=== PATIENT | male | born 1975 | race Caucasian/White ===

== ENCOUNTER 2019-08-08 13:51 | Emergency (ER) | payer BC, SELFPAY ==
[2019-08-08 13:53] VITALS: BP 149/102; PULSE 89; RESP 16; TEMP 36.4; O2SAT 99; BMI 25.5
--- NOTE | 2019-08-08 14:42 | EKG12_ITS ---
Test Reason : CP Blood Pressure : / mmHG Vent. Rate : 085 BPM Atrial Rate : 085 BPM P-R Int : 162 ms QRS Dur : 084 ms QT Int : 370 ms P-R-T Axes : 064 059 038 degrees QTc Int : 440 ms Sinus rhythm with frequent and consecutive Premature ventricular complexes Abnormal ECG Confirmed by DINESH HARVEY, LORENZO ([id number]), supervising editor news reel DENNISE IVAN ([id number]) on 08/10/2019 12:56:43 PM Referred By: ALIYAH Confirmed By:LORENZO MONTIEL MD
[2019-08-08 14:48] LABS: Basophil# 0.04 X10^3/uL; Basophil% 0.5 % (0-1); Eosinophil# 0.11 X10^3/uL; Eosinophils% 1.3 % (0-5); Hematocrit 45.1 % (40-54); Hemoglobin 15.9 g/dL (13.0-16.5); Lymphocyte % 19.2 % (19-41); Mean Corp Hgb Conc 35.3 g/dL (32-36); Mean Corpuscular Hgb 31.2 pg (27.0-32.0); Mean Corpuscular Volume 88.4 fL (80-94); Mean Platelet Vol. 9.3 fl (6.2-12.0); Monocyte# 0.61 X10^3/uL; Monocyte% 7.3 % (0-10); NRBC Flagged by Analyzer 0 % (0-5); Neutrophil # 5.95 X10^3/uL (2.7-7.7); Neutrophil % 71.2 % (47-70); Platelet Count 249 K/mm3 (150-450); RBC Distribution Width CV 11.9 % (11.6-14.6); RBC Distribution Width SD 38.9 fl (35.1-43.9); White Blood Count 8.4 K/mm3 (4.4-11.0)
[2019-08-08 14:56] LABS: D-Dimer Quantitative (DVT/PE) < 0.27 FEU/ug/m (0.27-0.49)
[2019-08-08] MEDS: 0.9% Normal Saline 1,000 ML 150 ML IV (14:57)
[2019-08-08] MEDS: Aspirin 81 MG TAB.CHEW 324 MG PO (14:57)
--- NOTE | 2019-08-08 15:00 | RAD_ITS ---
STUDY: X-RAY CHEST REASON FOR EXAM: Male, 44 years old. Chest pain. TECHNIQUE: PA and lateral views of the chest. COMPARISON: None. FINDINGS: EKG electrodes are seen. The lungs are clear and expanded. Scattered calcified granulomas There is no demonstrated pleural abnormality. Normal size heart. Normal mediastinum and isrrael. Normal visualized pulmonary arteries. Normal visualized aortic arch and descending thoracic aorta. Normal visualized thoracic spine. Normal visualized ribs, clavicles, and shoulders. There is no demonstrated abnormality of the visualized soft tissue structures of the upper abdomen. RAD/Chest PA and Lateral IMPRESSION: Normal x-ray examination of the chest. Electronically Signed: Ayo Medina, at 15:15 EST , Service support ,
[2019-08-08 15:02] LABS: Anion Gap 5 (5-15); BUN 8 mg/dL (7-18); BUN/Creat Ratio 8.5 RATIO (10-20); Calcium,Total 9.5 mg/dL (8.5-10.1); Chloride 106 mmol/L (98-107); Creatinine, Serum 0.94 mg/dL (0.70-1.30); EST Glomerular Filtration Rate 92 mL/min (>60); Est Glom Filt Rate - Afr Amer 111 mL/min (>60); Glucose 97 mg/dL (74-106); Potassium 4.2 mmol/L (3.5-5.1); Sodium Level 140 mmol/L (136-145)
--- NOTE | 2019-08-08 15:37 | ED.DCSUM_ITS ---
History of Present Illness Chief Complaint: Chest Pain Detail of Chief Complaint: Right-sided chest pain Informant: Patient Onset: Days - 3 days Context: Sudden Onset Timing: Waxes and wanes Current Severity: Mild Maximum Severity: Moderate Narrative: Patient presents with right-sided chest pain for the past 3 days. He states 3 days ago he was in [place]. He had sudden onset of sharp right- sided chest pain. He is able to pinpoint one finger right to the area. He states the next day the pain was only about half as intense and the following day again half as intense. He does not remember feeling short of breath. He has not had recent cough. Last night he had sudden sharp pain to his left low back that caused him to fall. Patient states he thinks this is all chest wall pain but he was not able to reproduce with palpation over his chest. He does have a family history of heart disease. He has no risk factors for DVT or PE. Past Medical History - Allergies and Home Meds Allergies/Adverse Reactions: Allergies tree nut Allergy (Verified 08/08/19 13:52) Chest tightness walnut Allergy (Verified 08/08/19 13:52) Chest tightness Primary Care Physician: Lanette Gould MD [Primary Care Provider] - 5-7 Days Past Medical History: None Lives: With Family Smoking Status: Never smoker Review of Systems General: Denies: Chills, Fever Eyes: Denies: Visual changes - bilaterally ENT: Denies: Bilateral ear pain Cardiovascular: Reports: Chest pain. Denies: Palpitations, Heart racing Respiratory: Denies: Dyspnea, Cough Gastrointestinal: Denies: Abdominal pain, Nausea, Vomiting, Diarrhea Genitourinary: Denies: Dysuria Musculoskeletal: Reports: Back pain - Last evening, now resolved. Denies: Extremity Pain Skin: Denies: Rash Neurological: Denies: Headache, Weakness, Parasthesia Endocrine: Denies: Polyuria, Polydipsia Hematologic: Denies: Easy bruising Allergy: Denies: Uticaria Physical Exam Vital Signs/Narrative: Vital Signs Temp Pulse Resp BP Pulse Ox 08/08/19 13:53 97.5 F L 89 16 149/102 H 99 Inital Vital Signs reviewed: Yes General: Well nourished, Well developed Head: Normocephalic ENT: Moist mucous membranes Neck: Supple Cardiovascular: Regular rate, Regular rhythm Respiratory: No distress, CTA bilaterally, Chest nontender Abdomen: Soft, Nontender Extremities: Nontender Skin: Normal color, No rash Neurological: Alert, Oriented x3, Normal Strength, Normal Sensation Psychological: Normal affect Diagnostic/Tx/Re-eval Impressions Chest X-Ray 08/08/19 15:00 IMPRESSION: Normal x-ray examination of the chest. Electronically Signed: Ayo Medina, at 15:15 EST , Service support , 08/08/19 15:00 Chest PA and Lateral [RAD] Stat Laboratory Results 08/08/19 08/08/19 08/08/19 14:00 14:00 14:00 WBC 8.4 RBC 5.10 Hgb 15.9 Hct 45.1 MCV 88.4 MCH 31.2 MCHC 35.3 RDW Std Deviation 38.9 RDW Coeff of Renan 11.9 Plt Count 249 MPV 9.3 Immature Gran % (Auto) 0.500 Neut % (Auto) 71.2 H Lymph % (Auto) 19.2 Burnett % (Auto) 7.3 Eos % (Auto) 1.3 Baso % (Auto) 0.5 Absolute Neuts (auto) 6.0 Absolute Lymphs (auto) 1.60 Nucleated RBC % 0 D-Dimer Quant (PE/DVT) < 0.27 L Sodium 140 Potassium 4.2 Chloride 106 Carbon Dioxide 29.0 Anion Gap 5 BUN 8 Creatinine 0.94 Estim Creat Clear Calc 116.60 Est GFR (MDRD) Af Amer 111 Est GFR (MDRD) Non-Af 92 BUN/Creatinine Ratio 8.5 L Glucose 97 Calcium 9.5 Troponin I < 0.015 - EKG Initial EKG Interpretation: Sinus Rhythm - Sinus 85 with PVCs. - Medical Decision Making Patient was given aspirin on arrival here. On repeat evaluation is resting comfortably. I advised that this time his cardiac work-up was unremarkable. He has no evidence of DVT or PE. I did discuss with him that he does have fairly frequent PVCs noted on rn cardiac rehab. He is not symptomatic with this and has had no lightheadedness or syncope. He is to follow with his primary care physician. If his symptoms worsen he will return for repeat evaluation. ED Disposition - Plan for ED Patient: Disposition: Home or Assisted Living Diagnosis: Chest pain Instructions: CHEST PAIN, Uncertain Cause Referrals: Lanette Gould MD [Primary Care Provider] - 5-7 Days
[2019-08-08 15:44] VITALS: BP 132/91; PULSE 78; RESP 14; O2SAT 97
== END 2019-08-08 15:45 | disposition home or self-care (01) ==
PROVIDERS: Emergency Provider Emergency Medicine; Family Provider Internal Medicine; PCP Internal Medicine
DX: R07.9 Chest pain, unspecified (principal); Z82.49 Family history of ischemic heart disease and other diseases of the circulatory system
CPT/HCPCS: 71046; 80048; 84484; 85025; 85379; 93005; 96360; 99285; J7030; A4216